=== PATIENT | female | born 1950 | race Two or more races ===

== ENCOUNTER 2019-08-07 06:24 | Day surgery (SDC) | payer MEDICARE, MEDICAID ==
--- NOTE | 2019-08-03 14:27 | Opthalmology H&P ---
Ophthalmology H&P H&P Chief Complaint: decreased vision in left eye HPI Vision Affects Ability to: read, drive, manage personal affairs Past Ocular History: other - NICOLE, OU HPI Narrative Blurry vision Exam Visual Acuity: OD 20/60 OS Countin fingers Tension: OD 13 OS 13 Eye Exam: normal OU: external exam, palpebral fissure-width, marginal reflex distance, levator function, corneas, anterior chambers, fundus exam; findings: lens - NS, OU Assessment/Plan Treatment Plan: cataract extraction w/ lens implant Goals of Treatment: improvement of vision, enhance quality of life Attestation Attestation The risks and benefits of the surgery as well as alternative procedures were explained to the patient in detail. Walter Hernández MD August 03, 2019 14:27
--- NOTE | 2019-08-03 14:29 | Pre-Procedure Note/Attestation ---
Pre-Procedure Note/Attestation Complete Prior to Procedure Planned Procedure: left Procedure Narrative: Cataract extraction with intraocular lens implant left eye Indications for Procedure Pre-Operative Diagnosis: Nuclear sclerotic cataract let eye Attestation I attest that I discussed the nature of the procedure; its benefits; risks and complications; and alternatives (and the risks and benefits of such alternatives ), prior to the procedure, with the patient (or the patient's legal footwear sales representative). I attest that, if there was a reasonable possibility of needing a blood transfusion, the patient (or the patient's legal footwear sales representative) was given the [facility] standardized written summary, pursuant to the Walt Jhony Blood Safety Act ([place] Health and Safety Code # 1645, as amended). I attest that I re-evaluated the patient just prior to the surgery and that there has been no change in the patient's H&P, except as documented below: Walter Hernández MD August 03, 2019 14:29
[~2019-08-07] VITALS: Ht 157.5 cm; Wt 86.2 kg
[2019-08-07] VITALS (9 sets, daily range): BP systolic 141–160; BP diastolic 60–98
[~2019-08-07 06:24] MED LIST: HUMULIN R100 UNIT/1 SUBQ; LOSARTAN POTAS100 MG ORAL; LYRICA75 M1 ORAL; METOPROLOL TART50 MG ORAL; NORCO 10-325 T1 EACH ORAL; ROBAXIN-500MG ORAL; TOUJEO SOL300 UNIT/1 SQ
[2019-08-07] MEDS ORDERED: Akten 3.5% 1ml Btl LEFT EYE ONE (07:00)
[2019-08-07] MEDS ORDERED: Polysporin Oint 15gm TOPIC ONE (07:00)
[2019-08-07] MEDS ORDERED: prednisoLONE acetate 1% Opth Susp 1ml ONE (07:00)
[2019-08-07] MEDS ORDERED: Pilocarpine 1% Opth 15ml Soln ONE (07:00)
[2019-08-07] MEDS ORDERED: Tetracaine 0.5% Opth 4ml Soln LEFT EYE ONE (07:00)
[2019-08-07] MEDS ORDERED: Proparacaine 0.5% Opth Soln 15ml LEFT EYE ONE (07:00)
[2019-08-07] MEDS: Cyclopentolate 1% Opth Sol 2ml LEFT EYE SCH ×3 (07:09→07:28)
[2019-08-07] MEDS: Phenylephrine 10% Opth Soln 5ml LEFT EYE SCH ×3 (07:09→07:28)
[2019-08-07] MEDS: Tobramycin Op Soln 0.3% 5ml LEFT EYE SCH ×3 (07:09→07:28)
[2019-08-07] MEDS: Tropicamide 1% Opth 15ml Soln LEFT EYE SCH ×3 (07:09→07:28)
[2019-08-07] MEDS: Diclofenac Sod 0.1% Op Soln LEFT EYE SCH ×3 (07:10→07:28)
[2019-08-07] MEDS ORDERED: BSS 15ml BTL ONE (07:28)
[2019-08-07] MEDS ORDERED: BSS 500ml btl ONE (07:28)
[2019-08-07] MEDS ORDERED: EPINEPHrine 1mg/1ml Amp ONE (07:28)
[2019-08-07] MEDS ORDERED: Povidone-Iodine 5% opth solution ONE (07:28)
[2019-08-07] MEDS ORDERED: Sodium Hyaluronate 10 mg/ml 0.85ml ONE (07:28)
[2019-08-07] MEDS ORDERED: Midazolam 2mg/2ml Inj ONE ×3 (08:39→09:27)
[2019-08-07] MEDS ORDERED: fentaNYL 100 mcg/2 mL IV ONE ×2 (08:39→08:59)
[2019-08-07] MEDS ORDERED: Sterile Water Irrig 1000ml IRRIG ONE (09:00)
[2019-08-07] MEDS ORDERED: NS Irrig 1000ml ONE (09:00)
[2019-08-07] MEDS ORDERED: LR 1000ml ONE (09:00)
--- NOTE | 2019-08-07 09:24 | Anethesia Preoperative Eval ---
Anesthesia Pre-op PMH/ROS General Date of Evaluation: Aug 07, 2019 Time of Evaluation: 08:40 Anesthesiologist: Marbella ASA Score: ASA 3 Mallampati Score Class I : Soft palate, uvula, fauces, pillars visible Class II: Soft palate, uvula, fauces visible Class III: Soft palate, base of uvula visible Class IV: Only hard plate visible Mallampati Classification: Class III Surgeon: Betty Diagnosis: cataract Surgical Procedure: left eye cataract extraction Anesthesia History: none Family History: no anesthesia problems Allergies: Coded Allergies: [id number] REDUCTASE INHIBITOR (Verified Adverse Reaction, Severe, leg pain, 08/04/19) Medications: see eMAR Patient NPO?: Yes NPO Date: Aug 07, 2019 NPO Time: 00:01 Past Medical History Cardiovascular: Reports: HTN; Denies: CAD, NM, valve dz, arrhythmia, other Pulmonary: Denies: asthma, COPD, GUSATVO, other Gastrointestinal/Genitourinary: Reports: GERD; Denies: CRI, ESRD, other Neurologic/Psychiatric: Reports: depression/anxiety; Denies: dementia, CVA, TIA, other Endocrine: Reports: DM; Denies: hypothyroidism, steroids, other HEENT: Reports: cataract (L) Hematology/Immune: Denies: anemia, DVT, bleeding disorder, other Other: obesity PSxH Narrative: knee Anesthesia Pre-op Phys. Exam Physician Exam Last Vital Signs Date Time Temp Pulse Resp B/P (MAP) Pulse Ox O2 Delivery O2 Flow Rate FiO2 08/07/19 07:22 Room Air 08/07/19 07:12 96.2 63 18 141/76 97 Constitutional: NAD Neurologic: CN 2-12 intact Cardiovascular: RRR Respiratory: CTA Gastrointestinal: S/NT/ND Airway Exam Mallampati Classification 3 Mallampati Score: Class II MO: full ROM: full Dentures: no upper, no lower Anesthesia Pre-op A/P Studies Pre-op Studies: EKG - SR Risk Assessment & Plan Plan: mac Status Change Before Surgery: No Pre-Antibiotics Drug: none Jeni Tyson CRNA Aug 07, 2019 09:24
--- NOTE | 2019-08-07 09:25 | Immediate Post-Op Evaluation ---
Immediate Post-Op Evalulation Immediate Post-Op Evalulation Procedure: left eye cataract extraction Date of Evaluation: Aug 07, 2019 Time of Evaluation: 09:25 IV Fluids: 600 Blood Pressure Systolic: 150 Blood Pressure Diastolic: 60 Pulse Rate: 68 Respiratory Rate: 14 O2 Sat by Pulse Oximetry: 99 Temperature (Fahrenheit): 97.7 Nausea: No Vomiting: No Complications none Patient Status: awake, reacts, patent Hydration Status: adequate Drug: none EvelynriJeni del cid CRNA Aug 07, 2019 09:25
--- NOTE | 2019-08-07 11:02 | 48 Hour Post Anesthesia Eval ---
Post Anesthesia Evaluation Procedure: left eye cataract extraction Date of Evaluation: Aug 07, 2019 Time of Evaluation: 11:02 Blood Pressure Systolic: 149 0: 86 Pulse Rate: 70 Respiratory Rate: 14 O2 Sat by Pulse Oximetry: 98 Airway: patent Nausea: No Vomiting: No Hydration Status: adequate Cardiopulmonary Status: stable Mental Status/LOC: patient returned to baseline Follow-up Care/Observations: na Post-Anesthesia Complications: none Follow-up care needed: N/A Jeni Tyson CRNA Aug 07, 2019 11:02
--- NOTE | 2019-08-07 13:48 | Brief Operative Note ---
Immediate Post Operative Note Operative Note Chief Complaint: Blurry vision Pre-op Diagnosis: Nuclear sclerotic cataract left eye Procedure: Cataract extraction with IOL implant left eye Post-op Diagnosis: Pseudophakia OS Findings: consistent w/pre-op dx studies Surgeon: Walter Hernández MD Anesthesiologist: Jeni Vásquez CRNA Anesthesia: MAC Specimen: none Complications: none Condition: stable Fluids: LR Estimated Blood Loss: none Drains: none Implant(s) used?: Yes - IOL-OS Walter Hernández MD Aug 07, 2019 13:48
--- NOTE | 2019-08-07 13:51 | Operative Note - PDOC ---
Operative Note Operative Note Date of Operation/Procedure: Aug 07, 2019 Chief Complaint: Blurry vision Pre-op Diagnosis: Nuclear sclerotic cataract left eye Procedure: Cataract extraction with IOL implant left eye Post-op Diagnosis: Pseudophakia OS Operative Findings: consistent w/pre-op dx studies Surgeon: Walter Hernández MD Anesthesiologist: Jeni Vásquez CRNA Anesthesia: MAC Specimen: none Complications: none Condition: stable Fluids: LR Estimated Blood Loss: none Drains: none Implant(s) used?: Yes - IOL-OS Indications for Procedure Nuclear sclerotic cataract left eye Description of Procedure This patient has been complaining visually significant cataract in the left eye with the best corrected visual acuity of 20/200 under moderate glare conditions worse. The patient complains of difficulties with glare in performing activities of daily living and wants to manage personal affairs with comfort and accuracy and see well enough to move with safety at home and outdoors. The risks, benefits and alternatives of the procedure were discussed with the patient in the office prior to scheduling surgery. All questions from the patient were answered after the surgical procedure was explained in detail. The risks of the procedure as explained to the patient include, but are not limited to, pain, infection, bleeding, loss of vision, retinal detachment, need for further surgery, loss of lens nucleus, double vision, etc. Alternative procedures were discussed which include, to do nothing or seek a second opinion. Informed consent for this procedure was obtained from the patient. The patient was referred to a primary care physician for a cardiopulmonary clearance prior to surgery, after proper evaluation was done patient was properly scheduled for outpatient surgery. The patient was brought to the operating room where the anesthesiologist established I.V. lines and cardiac monitoring leads. Mild intravenous sedation was administered. The patient was then prepared with a 5% solution of povidone -iodine to the conjunctival fornix and lashes, and a 5% solution of povidone- iodine to the lids and periorbital skin. The patient was then draped in the usual sterile fashion. A lid speculum was then placed in the operative eye. A keratome blade was then used to create a biplanar incision into the anterior chamber. Viscoelastics was then instilled into the anterior chamber. A capsulorrhexis was then fashioned with an utrata forceps. BSS and a cannula were then used to hydrodissect and hydro delineate the lens. Paracentesis incision was made at 3 o'clock with sharp blade. The phacoemulsification unit, after being properly adjusted and tested, was then used to emulsify the nucleus. Residual cortical material was aspirated with the irrigation and aspiration unit. Healon was then instilled into the anterior chamber. The corneal wound was then enlarged to the size of the optic with the halley keratome blade. The intraocular lens was then inspected for right power and size and thought to be satisfactory. Then the lens was gently placed in the capsular bag. Positioning within the capsular bag was confirmed by direct visualization. Optic centration was accomplished with a Sinskey hook. Viscoelastics was removed from the anterior chamber using the irrigation and aspiration unit. The corneal wound was then tested for leaks and none were found. The lid speculum were then removed. Sponge and needle counts were correct. An eye patch and shield were placed over the operative eye. The patient was taken to the recovery room in stable condition. There were no complications. The patient tolerated the procedure well. The patient was then transferred to the ambulatory surgery unit in stable and satisfactory condition , was given detailed written instructions and asked to follow up in the office the next day. Walter Hernández MD Aug 07, 2019 13:51
== END 2019-08-07 10:20 | disposition home or self-care (01) ==
LOC: SUR 06:24
DX: H25.12 Age-related nuclear cataract, left eye (principal); I10 Essential (primary) hypertension; K21.9 Gastro-esophageal reflux disease without esophagitis; E11.9 Type 2 diabetes mellitus without complications; E66.9 Obesity, unspecified; F32.9 Major depressive disorder, single episode, unspecified; F41.9 Anxiety disorder, unspecified
CPT/HCPCS: 66984; 94003; J0171; J1100; J2250; J3010; J3370; J7120; V2632; 94150